=== PATIENT | male | born 1970 | race Caucasian/White ===

== ENCOUNTER 2018-05-07 13:32 | Inpatient (IN) | payer OTHER ==
[2018-05-07] MEDS: VANCOMYCIN 1 GM (PMX) 250 ML IVPB (14:12)
[2018-05-07] MEDS: morphine 4 MG/ML VIAL IV (14:12)
[2018-05-07 14:18] LABS: ADD MAN DIFF? NO
[2018-05-07 14:22] LABS: WHITE BLOOD COUNT 11.1 10^3/ul (4.8-10.8)
[2018-05-07 14:22] LABS: ABNORMAL IP MESSAGE 1; BASOPHIL # 0.1 10^3/ul (0.0-0.1); BASOPHILS % 0.7 % (0.0-2.0); EOSINOPHILS # 0.3 10^3/ul (0.0-0.5); EOSINOPHILS % 2.3 % (0.0-7.0); HEMATOCRIT 47.2 % (42.0-52.0); HEMOGLOBIN 15.2 g/dl (14.0-18.0); LYMPHOCYTES # 3.2 10^3/ul (0.8-2.9); LYMPHOCYTES % 28.6 % (15.0-51.0); MEAN CORPUSCULAR HEMOGLOBIN 27.8 pg (29.0-33.0); MEAN CORPUSCULAR HGB CONC 32.2 g/dl (32.0-37.0); MEAN CORPUSCULAR VOLUME 86.4 fl (82.0-101.0); MEAN PLATELET VOLUME 9.1 fl (7.4-10.4); MONOCYTE # 1.9 10^3/ul (0.3-0.9); MONOCYTES % 16.7 % (0.0-11.0); NEUTROPHIL # 5.7 10^3/ul (1.6-7.5); NEUTROPHILS % 51.1 % (39.0-77.0); PLATELET COUNT 328 10^3/UL (140-415); POSITIVE DIFF @See below; RED BLOOD COUNT 5.46 10^6/ul (4.70-6.10); RED CELL DISTRIBUTION WIDTH 13.4 % (11.5-14.5)
[2018-05-07 14:36] LABS: LACTIC ACID 1.9 mmol/L (0.5-2.0)
[2018-05-07 14:42] LABS: ALANINE AMINOTRANSFERASE 66 IU/L (13-69); ALBUMIN 4.6 g/dl (3.3-4.9); ALBUMIN/GLOBULIN RATIO 1.17; ALKALINE PHOSPHATASE 79 IU/L (42-121); ANION GAP 16 (8-16); ASPARTATE AMINO TRANSFERASE 38 IU/L (15-46); BILIRUBIN,INDIRECT 0.6 mg/dl (0-1.1); BILIRUBIN,TOTAL 0.6 mg/dl (0.2-1.3); BLOOD UREA NITROGEN 13 mg/dl (7-20); CALCIUM 9.5 mg/dl (8.4-10.2); CARBON DIOXIDE 25 mmol/L (21-31); CHLORIDE 107 mmol/L (97-110); CREATININE 0.95 mg/dl (0.61-1.24); GLUCOSE 145 mg/dl (70-220); POTASSIUM 4.3 mmol/L (3.5-5.1); SODIUM 144 mmol/L (135-144); TOTAL PROTEIN 8.5 g/dl (6.1-8.1)
[2018-05-07] MEDS: SOD CHLORIDE 0.9% 1,000 ML IV ×2 (15:02)
[2018-05-07 15:26] LABS: TROPONIN-I < 0.010 ng/ml (0.000-0.120)
[2018-05-07] MEDS ORDERED: ONDANSETRON 4 MG INJ IV (15:30)
[2018-05-07] MEDS ORDERED: DOCUSATE SODIUM 100 MG CAP PO (15:30)
[2018-05-07] MEDS ORDERED: NACL 0.9% 3 ML SYG IV (15:30)
[2018-05-07] MEDS ORDERED: MAGNESIUM HYDROXIDE 30ML CUP PO (15:30)
[2018-05-07] MEDS ORDERED: VANCOMYCIN IV PER PHARMACY XX (15:30)
[2018-05-07] MEDS: HYDROCODONE/APAP (5/325) TAB PO (17:53)
[2018-05-07] MEDS: VANCOMYCIN 2 GM in SOD CHLORIDE 0.9% 500 ML IVPB ×2 (18:00→20:46)
[2018-05-07] MEDS: ACETAMINOPHEN 325 MG TAB PO (19:47)
[2018-05-07] MEDS: ATENOLOL 50 MG TAB PO (20:35)
[2018-05-07] MEDS ORDERED: CEFAZOLIN 1 GM/50 ML (PMX) 50 ML IV (22:00)
[2018-05-08] MEDS: HYDROCODONE/APAP (5/325) TAB PO ×3 (00:18→22:20)
[2018-05-08] MEDS: ACETAMINOPHEN 325 MG TAB PO (02:29)
[2018-05-08] MEDS ORDERED: VANCOMYCIN 2 GM in SOD CHLORIDE 0.9% 500 ML IVPB (06:00)
[2018-05-08] MEDS: PANTOPRAZOLE (EC) 40 MG TAB PO (06:19)
[2018-05-08 06:47] LABS: ADD MAN DIFF? NO
[2018-05-08 06:49] LABS: ABNORMAL IP MESSAGE 1; BASOPHIL # 0.1 10^3/ul (0.0-0.1); BASOPHILS % 0.6 % (0.0-2.0); EOSINOPHILS # 0.2 10^3/ul (0.0-0.5); EOSINOPHILS % 1.3 % (0.0-7.0); HEMATOCRIT 43.1 % (42.0-52.0); HEMOGLOBIN 14.3 g/dl (14.0-18.0); LYMPHOCYTES # 2.1 10^3/ul (0.8-2.9); LYMPHOCYTES % 15.7 % (15.0-51.0); MEAN CORPUSCULAR HEMOGLOBIN 27.9 pg (29.0-33.0); MEAN CORPUSCULAR HGB CONC 33.2 g/dl (32.0-37.0); MEAN CORPUSCULAR VOLUME 84.2 fl (82.0-101.0); MEAN PLATELET VOLUME 9.5 fl (7.4-10.4); MONOCYTE # 1.7 10^3/ul (0.3-0.9); MONOCYTES % 12.8 % (0.0-11.0); NEUTROPHIL # 9.3 10^3/ul (1.6-7.5); NEUTROPHILS % 68.6 % (39.0-77.0); PLATELET COUNT 282 10^3/UL (140-415); POSITIVE DIFF @See below; RED BLOOD COUNT 5.12 10^6/ul (4.70-6.10); RED CELL DISTRIBUTION WIDTH 13.5 % (11.5-14.5)
[2018-05-08 06:49] LABS: WHITE BLOOD COUNT 13.5 10^3/ul (4.8-10.8)
[2018-05-08 07:20] LABS: ANION GAP 15 (8-16); BLOOD UREA NITROGEN 10 mg/dl (7-20); CALCIUM 8.7 mg/dl (8.4-10.2); CARBON DIOXIDE 26 mmol/L (21-31); CHLORIDE 102 mmol/L (97-110); CREATININE 0.91 mg/dl (0.61-1.24); GLUCOSE 113 mg/dl (70-220); MAGNESIUM 1.8 mg/dl (1.7-2.5); POTASSIUM 3.7 mmol/L (3.5-5.1); SODIUM 139 mmol/L (135-144)
[2018-05-08] MEDS: LOSARTAN 50 MG TAB PO (08:51)
[2018-05-08] MEDS: ATENOLOL 50 MG TAB PO ×2 (08:52→21:00)
[2018-05-08] MEDS: VANCOMYCIN 2 GM in SOD CHLORIDE 0.9% 500 ML IVPB (08:52)
[2018-05-08] MEDS: PIPER-TAZO 3.375 GM IV (PMX) 100 ML IVPB ×2 (14:01→21:42)
[2018-05-08] MEDS: traZODone 50 MG TAB PO (22:31)
[2018-05-09] MEDS: PIPER-TAZO 3.375 GM IV (PMX) 100 ML IVPB ×3 (06:08→17:55)
[2018-05-09] MEDS: PANTOPRAZOLE (EC) 40 MG TAB PO (06:08)
[2018-05-09 06:33] LABS: ADD MAN DIFF? NO
[2018-05-09 06:35] LABS: ABNORMAL IP MESSAGE 1; BASOPHIL # 0.1 10^3/ul (0.0-0.1); BASOPHILS % 0.7 % (0.0-2.0); EOSINOPHILS # 0.3 10^3/ul (0.0-0.5); EOSINOPHILS % 1.7 % (0.0-7.0); HEMOGLOBIN 13.8 g/dl (14.0-18.0); LYMPHOCYTES # 2.9 10^3/ul (0.8-2.9); LYMPHOCYTES % 16.5 % (15.0-51.0); MEAN CORPUSCULAR HEMOGLOBIN 27.8 pg (29.0-33.0); MEAN CORPUSCULAR HGB CONC 32.9 g/dl (32.0-37.0); MEAN CORPUSCULAR VOLUME 84.5 fl (82.0-101.0); MEAN PLATELET VOLUME 9.4 fl (7.4-10.4); MONOCYTES % 11.5 % (0.0-11.0); NEUTROPHIL # 11.8 10^3/ul (1.6-7.5); NEUTROPHILS % 67.5 % (39.0-77.0); PLATELET COUNT 279 10^3/UL (140-415); POSITIVE DIFF @See below; RED BLOOD COUNT 4.97 10^6/ul (4.70-6.10); RED CELL DISTRIBUTION WIDTH 13.5 % (11.5-14.5)
[2018-05-09 06:35] LABS: WHITE BLOOD COUNT 17.5 10^3/ul (4.8-10.8)
[2018-05-09] MEDS: LOSARTAN 50 MG TAB PO (09:11)
[2018-05-09] MEDS: ATENOLOL 50 MG TAB PO ×2 (09:11→21:11)
[2018-05-09] MEDS ORDERED: VANCOMYCIN IV PER PHARMACY XX (11:30)
[2018-05-09] MEDS: CELECOXIB 100 MG CAP PO (12:17)
[2018-05-09] MEDS: VANCOMYCIN 2 GM in SOD CHLORIDE 0.9% 500 ML IVPB (13:46)
[2018-05-10] MEDS: ZOLPIDEM 5 MG TAB PO (00:06)
[2018-05-10] MEDS: PIPER-TAZO 3.375 GM IV (PMX) 100 ML IVPB ×4 (00:06→18:50)
[2018-05-10] MEDS: VANCOMYCIN 2 GM in SOD CHLORIDE 0.9% 500 ML IVPB ×2 (01:42→14:09)
[2018-05-10] MEDS: PANTOPRAZOLE (EC) 40 MG TAB PO (05:52)
[2018-05-10 05:54] LABS: ADD MAN DIFF? NO
[2018-05-10 05:56] LABS: ABNORMAL IP MESSAGE 1; BASOPHIL # 0.1 10^3/ul (0.0-0.1); BASOPHILS % 0.8 % (0.0-2.0); EOSINOPHILS # 0.6 10^3/ul (0.0-0.5); EOSINOPHILS % 3.3 % (0.0-7.0); HEMATOCRIT 41.5 % (42.0-52.0); HEMOGLOBIN 13.4 g/dl (14.0-18.0); LYMPHOCYTES # 2.8 10^3/ul (0.8-2.9); LYMPHOCYTES % 16.5 % (15.0-51.0); MEAN CORPUSCULAR HEMOGLOBIN 27.8 pg (29.0-33.0); MEAN CORPUSCULAR HGB CONC 32.3 g/dl (32.0-37.0); MEAN CORPUSCULAR VOLUME 86.1 fl (82.0-101.0); MEAN PLATELET VOLUME 9.5 fl (7.4-10.4); MONOCYTE # 1.6 10^3/ul (0.3-0.9); MONOCYTES % 9.5 % (0.0-11.0); NEUTROPHIL # 11.5 10^3/ul (1.6-7.5); NEUTROPHILS % 67.6 % (39.0-77.0); PLATELET COUNT 302 10^3/UL (140-415); POSITIVE DIFF @See below; RED BLOOD COUNT 4.82 10^6/ul (4.70-6.10); RED CELL DISTRIBUTION WIDTH 13.3 % (11.5-14.5)
[2018-05-10 06:25] LABS: ANION GAP 13 (8-16); BLOOD UREA NITROGEN 12 mg/dl (7-20); CALCIUM 8.7 mg/dl (8.4-10.2); CARBON DIOXIDE 24 mmol/L (21-31); CHLORIDE 107 mmol/L (97-110); CREATININE 0.98 mg/dl (0.61-1.24); GLUCOSE 140 mg/dl (70-220); POTASSIUM 3.9 mmol/L (3.5-5.1); SODIUM 140 mmol/L (135-144)
[2018-05-10] MEDS: CELECOXIB 100 MG CAP PO (08:18)
[2018-05-10] MEDS: LOSARTAN 50 MG TAB PO (08:18)
[2018-05-10] MEDS: ATENOLOL 50 MG TAB PO ×2 (08:18→20:45)
[2018-05-10] MEDS: AMLODIPINE 5 MG TAB PO (11:58)
[2018-05-11] MEDS: PIPER-TAZO 3.375 GM IV (PMX) 100 ML IVPB ×3 (00:09→06:11)
[2018-05-11] MEDS: ALBUTEROL HFA 8 GM INHALER INH (00:52)
[2018-05-11] MEDS: ZOLPIDEM 5 MG TAB PO (00:52)
[2018-05-11 02:00] LABS: VANCOMYCIN,TROUGH 7.4 ug/ml (10.0-20.0)
[2018-05-11] MEDS: VANCOMYCIN 2 GM in SOD CHLORIDE 0.9% 500 ML IVPB (02:06)
[2018-05-11 05:17] LABS: ADD MAN DIFF? NO
[2018-05-11 05:26] LABS: BASOPHIL # 0.1 10^3/ul (0.0-0.1); BASOPHILS % 0.9 % (0.0-2.0); EOSINOPHILS # 0.7 10^3/ul (0.0-0.5); LYMPHOCYTES # 2.8 10^3/ul (0.8-2.9); LYMPHOCYTES % 20.1 % (15.0-51.0); MEAN CORPUSCULAR HEMOGLOBIN 27.8 pg (29.0-33.0); MEAN CORPUSCULAR HGB CONC 32.5 g/dl (32.0-37.0); MEAN CORPUSCULAR VOLUME 85.7 fl (82.0-101.0); MEAN PLATELET VOLUME 9.4 fl (7.4-10.4); MONOCYTES % 7.1 % (0.0-11.0); NEUTROPHIL # 8.9 10^3/ul (1.6-7.5); PLATELET COUNT 329 10^3/UL (140-415); RED BLOOD COUNT 4.67 10^6/ul (4.70-6.10); RED CELL DISTRIBUTION WIDTH 13.2 % (11.5-14.5)
[2018-05-11 05:26] LABS: WHITE BLOOD COUNT 13.9 10^3/ul (4.8-10.8)
[2018-05-11] MEDS: PANTOPRAZOLE (EC) 40 MG TAB PO (06:11)
[2018-05-11 08:59] LABS: HEMOGLOBIN A1C 6.4 % (0-5.9)
[2018-05-11 09:28] LABS: HIV 1&2 ANTIBODY NEGATIVE (NEGATIVE)
[2018-05-11] MEDS: ATENOLOL 50 MG TAB PO ×2 (09:30→21:33)
[2018-05-11] MEDS: AMLODIPINE 5 MG TAB PO (09:30)
[2018-05-11] MEDS: CELECOXIB 100 MG CAP PO (09:30)
[2018-05-11] MEDS: LOSARTAN 50 MG TAB PO (09:31)
[2018-05-11] MEDS: VANCOMYCIN 1.75 GM in SOD CHLORIDE 0.9% 500 ML IVPB ×2 (12:30→19:47)
[2018-05-11] MEDS: CEFTRIAXONE 1 GM/50 ML (PMX) 50 ML IVPB (17:00)
[2018-05-11] MEDS ORDERED: HEPARIN (10 UNITS/ML) 5ML SYG (20:31)
[2018-05-11] MEDS ORDERED: ALTEPLASE (CATHFLO) 2 MG INJ CATHETER (21:00)
[2018-05-11] MEDS: HEPARIN (10 UNITS/ML) 5ML SYG CATHETER (22:47)
[2018-05-12] MEDS: hydrALAzine 20 MG INJ IV ×2 (02:54→11:11)
[2018-05-12] MEDS: VANCOMYCIN 1.75 GM in SOD CHLORIDE 0.9% 500 ML IVPB ×3 (04:03→21:17)
[2018-05-12] MEDS: PANTOPRAZOLE (EC) 40 MG TAB PO (05:37)
[2018-05-12 05:38] LABS: ADD MAN DIFF? NO
[2018-05-12 05:46] LABS: BASOPHIL # 0.1 10^3/ul (0.0-0.1); BASOPHILS % 1.1 % (0.0-2.0); EOSINOPHILS # 0.8 10^3/ul (0.0-0.5); EOSINOPHILS % 5.8 % (0.0-7.0); HEMOGLOBIN 13.2 g/dl (14.0-18.0); LYMPHOCYTES # 2.6 10^3/ul (0.8-2.9); LYMPHOCYTES % 20.5 % (15.0-51.0); MEAN CORPUSCULAR HEMOGLOBIN 27.4 pg (29.0-33.0); MEAN CORPUSCULAR HGB CONC 32.2 g/dl (32.0-37.0); MEAN CORPUSCULAR VOLUME 85.2 fl (82.0-101.0); MEAN PLATELET VOLUME 9.4 fl (7.4-10.4); MONOCYTE # 0.8 10^3/ul (0.3-0.9); MONOCYTES % 5.9 % (0.0-11.0); NEUTROPHIL # 8.1 10^3/ul (1.6-7.5); NEUTROPHILS % 62.8 % (39.0-77.0); PLATELET COUNT 380 10^3/UL (140-415); RED BLOOD COUNT 4.81 10^6/ul (4.70-6.10); RED CELL DISTRIBUTION WIDTH 13.2 % (11.5-14.5)
[2018-05-12 05:46] LABS: WHITE BLOOD COUNT 12.9 10^3/ul (4.8-10.8)
[2018-05-12 06:06] LABS: ANION GAP 12 (8-16); BLOOD UREA NITROGEN 12 mg/dl (7-20); CARBON DIOXIDE 24 mmol/L (21-31); CHLORIDE 110 mmol/L (97-110); CREATININE 0.87 mg/dl (0.61-1.24); GLUCOSE 109 mg/dl (70-220); MAGNESIUM 2.2 mg/dl (1.7-2.5); PHOSPHORUS 5.6 mg/dl (2.5-4.9); SODIUM 142 mmol/L (135-144)
[2018-05-12] MEDS: AMLODIPINE 5 MG TAB PO ×2 (08:26→14:04)
[2018-05-12] MEDS: LOSARTAN 50 MG TAB PO (08:26)
[2018-05-12] MEDS: CELECOXIB 100 MG CAP PO (08:26)
[2018-05-12] MEDS: ATENOLOL 50 MG TAB PO ×2 (08:26→21:17)
[2018-05-12] MEDS: CEFTRIAXONE 1 GM/50 ML (PMX) 50 ML IVPB (12:11)
[2018-05-12] MEDS: AMLODIPINE 10 MG TAB PO (13:34)
[2018-05-12 14:13] LABS: VANCOMYCIN,TROUGH 13.5 ug/ml (10.0-20.0)
[2018-05-12] MEDS: ZOLPIDEM 5 MG TAB PO (22:04)
[2018-05-13] MEDS: VANCOMYCIN 1.75 GM in SOD CHLORIDE 0.9% 500 ML IVPB ×2 (05:51→14:40)
[2018-05-13] MEDS: PANTOPRAZOLE (EC) 40 MG TAB PO (05:51)
[2018-05-13 06:10] LABS: ADD MAN DIFF? NO
[2018-05-13 06:19] LABS: WHITE BLOOD COUNT 12.6 10^3/ul (4.8-10.8)
[2018-05-13 06:19] LABS: ABNORMAL IP MESSAGE 1; BASOPHIL # 0.2 10^3/ul (0.0-0.1); BASOPHILS % 1.3 % (0.0-2.0); EOSINOPHILS # 0.7 10^3/ul (0.0-0.5); EOSINOPHILS % 5.6 % (0.0-7.0); HEMATOCRIT 41.2 % (42.0-52.0); HEMOGLOBIN 13.6 g/dl (14.0-18.0); LYMPHOCYTES # 2.9 10^3/ul (0.8-2.9); LYMPHOCYTES % 23.2 % (15.0-51.0); MEAN CORPUSCULAR HEMOGLOBIN 28.3 pg (29.0-33.0); MEAN CORPUSCULAR VOLUME 85.7 fl (82.0-101.0); MEAN PLATELET VOLUME 9.4 fl (7.4-10.4); MONOCYTE # 0.7 10^3/ul (0.3-0.9); MONOCYTES % 5.7 % (0.0-11.0); NEUTROPHIL # 7.3 10^3/ul (1.6-7.5); PLATELET COUNT 397 10^3/UL (140-415); POSITIVE DIFF @See below; RED BLOOD COUNT 4.81 10^6/ul (4.70-6.10); RED CELL DISTRIBUTION WIDTH 13.4 % (11.5-14.5)
[2018-05-13 06:42] LABS: ANION GAP 12 (8-16); BLOOD UREA NITROGEN 11 mg/dl (7-20); CALCIUM 8.9 mg/dl (8.4-10.2); CARBON DIOXIDE 25 mmol/L (21-31); CHLORIDE 111 mmol/L (97-110); CREATININE 0.85 mg/dl (0.61-1.24); GLUCOSE 114 mg/dl (70-220); MAGNESIUM 2.3 mg/dl (1.7-2.5); PHOSPHORUS 5.3 mg/dl (2.5-4.9); SODIUM 144 mmol/L (135-144)
[2018-05-13] MEDS: AMLODIPINE 10 MG TAB PO (08:44)
[2018-05-13] MEDS: LOSARTAN 50 MG TAB PO (08:44)
[2018-05-13] MEDS: ATENOLOL 50 MG TAB PO (08:44)
[2018-05-13] MEDS: CELECOXIB 100 MG CAP PO (08:45)
[2018-05-13] MEDS: CEFTRIAXONE 1 GM/50 ML (PMX) 50 ML IVPB (13:54)
== END 2018-05-13 19:51 | disposition home or self-care (01) | DRG 603 ==
LOC: E/R 13:32 → PP2 15:04
DX: L03.114 Cellulitis of left upper limb (principal); Z68.41 Body mass index [BMI] 40.0-44.9, adult; E66.01 Morbid (severe) obesity due to excess calories; I10 Essential (primary) hypertension; M10.9 Gout, unspecified
CPT/HCPCS: 73070; 76536; 80048; 80053; 80202; 83036; 83605; 83735; 84100; 84484; 84560; 85025; 86703; 87040; 93005